=== PATIENT | male | born 1965 | race Two or more races ===

== ENCOUNTER → 2024-03-10 | Emergency (ER) | payer BC ==
[~2024-03-10] VITALS: Ht 185.4 cm; Wt 99.8 kg
[~2024-03-10] MED LIST: JANUVIA25 MG; TRAMADOL HCL 50 MG TABLET PO ONE
== END | disposition left against medical advice (07) ==
LOC: ER 07:59
DX: M25.532 Pain in left wrist (principal); M25.531 Pain in right wrist; M54.2 Cervicalgia; V19.88XA Pedal cyclist (driver) (passenger) injured in other specified transport accidents, initial encounter; Y93.55 Activity, bike riding; Y92.89 Other specified places as the place of occurrence of the external cause